=== PATIENT | male | born 1935 | race Caucasian/White ===

== ENCOUNTER 2020-09-18 13:55 | Emergency (ER) | payer MEDICARE ==
[~2020-09-18] VITALS: Ht 172.7 cm; Wt 79.1 kg
[2020-09-18] MEDS ORDERED: OXYCODONE15 MG PO (14:11)
[2020-09-18] MEDS ORDERED: MORPHINE SULFAT30 M1 PO (14:12)
[2020-09-18] MEDS ORDERED: LYRICA50 MG PO (14:13)
[2020-09-18] MEDS ORDERED: ELIQUIS5 MG PO (14:14)
[2020-09-18 15:12] VITALS: BP 197/107
== END 2020-09-18 15:25 | disposition left against medical advice (07) ==
LOC: ED 13:55
PROC: 0HQ1XZZ Repair Face Skin, External Approach (ICD-10-PCS; principal; 2020-09-18)
DX: S01.81XA Laceration without foreign body of other part of head, initial encounter (principal); S01.21XA Laceration without foreign body of nose, initial encounter; I10 Essential (primary) hypertension; W01.0XXA Fall on same level from slipping, tripping and stumbling without subsequent striking against object, initial encounter; Y92.512 Supermarket, store or market as the place of occurrence of the external cause; Z79.01 Long term (current) use of anticoagulants; Z91.19 Patient's noncompliance with other medical treatment and regimen